=== PATIENT | male | born 1995 | race Caucasian/White ===

== ENCOUNTER 2024-11-07 19:01 | Emergency (ER) | payer SELFPAY ==
[2024-11-07 19:03] VITALS: BP 116/85; PULSE 67; RESP 15; TEMP 35.9; O2SAT 99
[2024-11-07 23:01] VITALS: RESP 16
--- NOTE | 2024-11-07 23:05 | ED.RN ---
PT CUSSING SAYING FUCK THIS FUCK THAT. PT ON THE PHONE STATES THAT IF HIS FRIEND WAS HERE WE WOULD BE IN TROUBLE. PT HAS BEEN COMPLAINING TO OTHER PT'S ABOUT HIS WAIT.
--- NOTE | 2024-11-07 23:14 | ED.RN ---
PT CONTINUED TO CUSSING AFTER HRO SPOKE WITH HIM.
--- NOTE | 2024-11-08 00:14 | EDS_ITS ---
HPI History of Present Illness Chief Complaint: Laceration Narrative Narrative: Chief complaint and HPI: Finger lacerations. 29-year-old male with no significant past medical history presents for evaluation of lacerations to the volar aspect of the right middle and pointer finger. Patient states that he was trying to open something with a clean razor blade in which he accidentally cut his fingers. He is not on blood thinners. He is up-to-date on tetanus. Denies any numbness or tingling. Review of systems: See HPI Medications: As listed on the chart Allergies: As listed on the chart PFSH: Per chart Vital signs: As listed on the chart. Reviewed. Physical exam: Gen: A&O x3, NAD Head: Normocephalic, atraumatic Eyes: No sclera icterus, conjunctiva clear ENT: Moist mucous membranes CV: Regular rate Resp: Nonlabored respiration Musc: Full ROM, no deformity, patient has a 2 cm laceration on the volar aspect of the right middle finger between the PIP and DIP joint-subcutaneous fat visualized. He has another 1 cm laceration to the right pointer finger between the PIP and DIP joint on the volar aspect. No active bleeding. No foreign object. Radial pulse +2. Good capillary refill. Sensation intact. Neuro: Alert, oriented, grossly intact Psych: Cooperative, appropriate mood and affect [facility] Medical History no medical history Home Medications ?Medication ?Instructions ?Recorded ?Last Taken ?Type NK 11/07/24 Unknown History Allergy/AdvReac Type Severity Reaction Status Date / Time amoxicillin (From Augmentin) Allergy Mild Rash Verified 11/07/24 19:03 azithromycin Allergy Mild Rash Verified 11/07/24 19:03 clavulanic acid (From Allergy Mild Rash Verified 11/07/24 19:03 Augmentin) Penicillins Allergy Mild Rash Verified 11/07/24 19:03 Social History Smoking Status: Unknown if ever smoked EXAM Physical Exam Const Vital Signs: 11/07/24 19:03 11/07/24 23:01 Temperature 96.6 F L Temperature Source Temporal Pulse Rate 67 Respiratory Rate 15 16 Blood Pressure 116/85 H Blood Pressure Mean 95 Pulse Ox 99 Oxygen Delivery Method Room Air MDM MDM MDM Narrative Medical decision making narrative: 29-year-old male with no significant past medical history presents for evaluation of lacerations to the volar aspect of the right middle and pointer finger. Patient states that he was trying to open something with a clean razor blade in which he accidentally cut his fingers. He is up-to-date on tetanus. See physical exam. Patient will require suture repair. Suture cart set up ordered with lidocaine. Nursing reported to me that when they went into the room to place the lidocaine on the suture cart, patient was not in the room. Patient had eloped. Patient did not inform anyone that he was leaving. Patient did have an extended wait time in triage secondary to the department being busy this evening. Impression: 1. Right middle finger laceration 2. Right pointer finger laceration 3. Elopement prior to repair Discharge Plan Triage Chief Complaint: Laceration ED Provider: [facility] Dx/Rx/DC Orders Prescriptions: No Action NK Primary Care Provider: Care Physician,No Primary Referrals: Care Physician,No Primary [Primary Care Provider] - Print Language: [place] Disposition Disposition: Home, Self Care Discharge Date/Time: 11/08/24 00:23
--- NOTE | 2024-11-08 00:19 | ED.RN ---
Pt eloped at 0013.
--- NOTE | 2024-11-08 00:20 | ED.RN ---
0015: THIS NURSE WENT INTO THE ROOM TO PREPARE SUTURE CART AND SCAN LIDOCAINE FOR THE PROVIDER. NO PT. FOUND IN THE ROOM AT THIS TIME. SECURITY CHECKED THE CAMERAS. ELOPEMENT TIME 0013. PROVIDER NOTIFIED.
== END 2024-11-08 00:23 | disposition home or self-care (01) ==
LOC: ED 11-08 00:23
PROVIDERS: Emergency Provider Surgery; Visit Provider Surgery
DX: S61.212A Laceration without foreign body of right middle finger without damage to nail, initial encounter (principal); S61.210A Laceration without foreign body of right index finger without damage to nail, initial encounter; X58.XXXA Exposure to other specified factors, initial encounter
CPT/HCPCS: 99282